=== PATIENT | male | born 1985 | race African-American/Black ===

== ENCOUNTER 2020-06-01 17:13 | Inpatient (IN) | payer OTHER, SELFPAY ==
[2020-06-01] MEDS ORDERED: Fentanyl 100 MCG/2 ML VIAL ONE (17:33)
[2020-06-01 19:26] LABS: CKMB 21.9 ng/mL (0-6.6)
[2020-06-01] MEDS ORDERED: Ondansetron PF 4 MG/2 ML Vial IVP PRN (19:35)
[2020-06-01] MEDS ORDERED: Nitroglycerin 0.4 MG TAB (25 Tab Bottle) SL PRN (19:35)
[2020-06-01] MEDS ORDERED: Acetaminophen 325 MG TAB PO PRN (19:35)
[2020-06-01] MEDS ORDERED: Ondansetron ODT 4 MG TAB PO PRN (19:35)
[2020-06-01 19:51] VITALS: BMI 27.7
[2020-06-01] MEDS ORDERED: Aspirin 325 MG TAB PO SCH (20:00)
[2020-06-01 20:09] LABS: Amphetamine Not Detected (NotDetected); Barbiturates Screen Not Detected (NotDetected); Benzodiazepine Screen Not Detected (NotDetected); Cocaine Metabolite Screen Not Detected (NotDetected); Medtox Control Line Valid? VALID (VALID); Medtox Reader # READER 4; Methadone Not Detected (NotDetected); Methamphetamine Not Detected (NotDetected); Opiate Screen Not Detected (NotDetected); Oxycodone Screen Not Detected (NotDetected); Phencyclidine (PCP) Not Detected (NotDetected); THC/Cannabinoid Screen Detected (NotDetected); Tricyclic Screen Not Detected (NotDetected)
--- NOTE | 2020-06-01 20:12 | PDOC.FPRHP ---
- History of Present Illness Chief Complaint: Chest pain History of Present Illness: Patient is a 34 year old male with a history of tobacco use and marijuana use who was transferred to the ED from [facility] with NSTEMI. Patient reports onset of sternal chest pain radiating to right neck at 9am when warming up for a workout. He says the pain came on suddenly and was associated with dizziness and nausea. He describes the pain as "my heart slowing down" and "what its like on PCP" but denies PCP or cocaine use in the past. Rates the pain initially a 9/10, now 0/10. He reports pain relief after nitro and fentanyl but notes he now has a mild headache. Denies vision changes, SOB, lightheadedness, near syncope and abdominal pain at this time. Hx of drug use - marijuana with last use this am. ED Course: In [facility] ED, EKG showed NSTEMI. Trop 0.018 -> 0.916. Zofran 4mg, nitro 0. 4 SL, nitro transderm, ASA 324 and lovenox 1mg/kg administered. Patient transferred to [facility] ED. Fentanyl 50 mcg administered for pain. Dr. Lobo was consulted in [facility] ED and examined EKG in ED. Per ED report, Dr. Lobo recommended NPO at midnight. - Allergies/Adverse Reactions Allergies Allergy/AdvReac Type Severity Reaction Status Date / Time acetaminophen Allergy Unverified 06/01/20 19:45 [From Darvocet-N] meperidine [From Demerol] Allergy Unverified 06/01/20 19:45 propoxyphene Allergy Unverified 06/01/20 19:45 [From Darvocet-N] - Home Medications Medication Instructions Recorded Confirmed Type No Known 06/01/20 06/01/20 History - History PMHx: Drug abuse (marijuana) PSHx: None FHx: Maternal grandfather - [place], no hx of sudden deaths or [place] at age < 50, family hx of DM Social: Smokes 1 ppd for past 18 years, denies ETOH use, hx drug use (marijuana), hx of fdc in 2011 - Review of Systems General: denies: fever/chills, night sweats, fatigue Eyes: denies: eye pain, vision changes ENT: denies: nasal congestion, rhinorrhea Respiratory: denies: cough, congestion, shortness of breath Cardiovascular: denies: chest pain, palpitation, edema Gastrointestinal: denies: nausea, vomiting, abdominal pain Genitourinary: denies: dysuria, polyuria Skin: denies: rashes, jaundice Musculoskeletal: denies: pain, tenderness Neurological: denies: syncope, seizure, weakness Psychological: denies: anxiety, depression - Vital signs BP: [134/78] HR: [57] RR: [17] Tmax: [98.3F] Pox: [97]% on [RA] Wt: [75kg] - Physical Exam Constitutional: NAD, awake, alert and oriented HEENT: normocephalic and atraumatic, conjunctiva clear, no scleral icterus, MMM Neck: FROM, trachea midline Chest: no-tender to palpation Heart: RRR, normal S1/S2, no murmurs/rubs/gallops, pulses present, no edema Lungs: CTAB, no respiratory distress, good air movement Abdomen: soft, non-tender, bowel sounds present Musculoskeletal: normal structure, ROM grossly normal Neurological: no focal deficit Skin: no rash/lesions, no jaundice Heme/Lymphatic: no unusual bruising or bleeding Psychiatric: normal mood and affect FMR H&P: Results - Labs Result Diagrams: 06/02/20 04:26 06/02/20 04:26 Lab results: CK-MB (CK-2) 21.9 ng/mL (0-6.6) H* 06/01/20 18:25 - EKG Interpretation EKG: Sinus bradycardia (HR 57), t wave inversions lead 1, 2, AVL stable compared to prior EKGs FMR H&P: A/P - Plan NSTEMI EKG shows bradycardia with t wave inversions lead 1, 2, AVL; stable on repeat EKG. CXR showed nothing acute. Received zofran 4mg, nitro SL, nitro TD, aspirin 324, fentanyl 50 mcg, and therapeutic lovenox 1mg/kg in ED. Heart score: 2. Dr. Lobo, cardiology, consulted and evaluated in ED. -Admit to tele for continuous monitoring -NPO at midnight -Trop 0.018 -> 0.916 -> 2.1. Continue to trend -EKG PRN if chest pain re-occcurs -UDS given hx of drug use -Continue therapeutic lovenox BID -F/u cardiology recs Tobacco abuse -Currently smokes 1ppd -Smoking cessation encouraged -Nicotine patch Marijuana use -Last use this am -Encouraged abstinence -UDS PCP: Alejandra Brennan Call Code: FULL DVT ppx: Therapeutic lovenox Dispo: Admit to tele inpatient, expected LOS > 48 hours FMR H&P: Upper Level - Plan Date/Time: 06/01/202011 I, Rosa Hylton, have evaluated this patient and agree with findings/plan as outlined by risk management internship resident. Pertinent changes/additions are listed here. 34 yo F with no significant PMH presents for chest pain. He reports during warm up he began to have left sided chest pain radiated up to neck. Associated with diaphoresis. Denies SOB, fever. Presented to ED because pain persisted. Was 10/10, currently 4/10. He is unsure what exactly improved pain. Reports a mild headache now, likely from nitro. No hx medical problems, no daily medications, no significant family hx CAD. He had this pain once during workup a couple months ago but it resolved spontaneously. Pain is not reproducible. Received fentanyl, zofran, nitro SL, nitro paste, ASA, lovenox in EDs PE: VSS Gen: NAD HEENT: Moist MM, no LAD Heart: RRR, no murmurs or extra sounds Lungs: CTAB, no wheezing. No increased work of breathing Abd: soft, nontender, BS+ Ext: no edema NSTEMI - EKG with T wave inversions lead 1, 2, AVL though repeat EKG was stable and did not have these inversions - Heart score 2 - Trop here 2.7->3.6->recheck ordered - A1c, lipids, UDS ordered - Continue therapeutic lovenox - Cardiology, Dr. Lobo, consulted from ED. Will reassess in am. - NPO @ [place] Attending: Clarence PCP: none Dispo: admit to telemetry inpatient, appreciate cardiology recs in am Addendum - Attending - Attending Attestation Date/Time: 06/01/202118 I personally evaluated the patient and discussed the management with resident henrik keating I agree with the History, Examination, Assessment and Plan documented above with any addition or exceptions noted below. Will admit to tele. Cards consulted from ER. Has seen patient. EKG identified as NSTEMI however, mild ST elevation in V5 and V6. Trop increasing but patient without symptoms. Will continue to trend and repeat EKG based on level and symptoms. Continue anticoag, antiplatelet, beta colleen, statin. Cards to cath in AM. Monitor closely. Cedric
[2020-06-01 21:00] LABS: Bacteria/HPF None Seen HPF (None Seen); Bilirubin Negative (Negative); Blood, Urine Negative (Negative); Clarity Clear (Clear); Glucose, Urine (Dipstick) Normal (Negative); Ketone, Urine 60 mg/dL (Negative); Leukocyte Negative Leu/uL (Negative); Nitrite Negative (Negative); Protein, Urine (Dipstick) 30 mg/dL (Neg-Trace); RBC/HPF 0-3 HPF (0-3); Specific Gravity, Urine 1.034 (1.002-1.036); Squamous Epithelial None Seen HPF (0-3); Urobilinogen Normal mg/dL (Less than 2); WBC/HPF 0-3 HPF (0-3); pH, Urine 5.5 (5.0-9.0)
[2020-06-01] MEDS: Lactated Ringer's 1,000 ML IV SCH (21:40)
[2020-06-01] MEDS: Nicotine 14 MG PATCH TD SCH (21:40)
--- NOTE | 2020-06-01 22:55 | PDOC.FM ---
- Subjective Subjective: Patient says he feels "fine." He notes mild chest pain, unchanged from the ED or during admission. He denies headache, vision changes, SOB, palpitations, nausea, diaphoresis and abdominal pain. - Objective Vital Signs & Weight: Vital Signs (12 hours) Temp Pulse Resp BP Pulse Ox 06/01/20 20:00 98 06/01/20 19:33 97.2 F L 54 L 18 138/66 98 Weight Weight 75.614 kg Result Diagrams: 06/03/20 04:20 06/03/20 04:20 Dx/Plan - Plan Plan: Troponin trended 0.018 -> 0.916 -> 2.1 -> 3.6 -> 5.527. Patient denies worsening of symptoms, only notes mild chest pain that is unchanged. Repeat EKG was stable. Will recheck troponin in 3 hours. F/u cardiology recs in am. Addendum - Attending - Attending Attestation Date/Time: 06/01/20 7125 I personally evaluated the patient and discussed the management with resident team I agree with the History, Examination, Assessment and Plan documented above with any addition or exceptions noted below. EKG stable. No ST changes. Trop continues to trend up. Asymptomatic. Continue current course. Cath with cards in AM. Cedric
[2020-06-02 00:04] LABS: Troponin I 5.527 ng/mL (< 0.028)
[2020-06-02] MEDS ORDERED: Enoxaparin Sodium 80 MG/0.8 ML SYRINGE SC SCH (03:00)
[2020-06-02] MEDS: Lactated Ringer's 1,000 ML IV SCH ×2 (04:20→13:05)
[2020-06-02 04:39] LABS: #Basophils 0.1 thou/uL (0.0-0.2); #Eosinphils 0.2 thou/uL (0.0-0.7); #Monocytes 0.6 thou/uL (0.11-0.59); #Neutrophils 4.4 thou/uL (1.40-6.50); %Eosinophils 2.6 % (0.0-10.0); %Lymphocytes 35.9 % (21.0-51.0); %Monocytes 7.3 % (0.0-10.0); %Neutrophils 53.3 % (42.0-75.0); Hemoglobin 14.2 g/dL (14.0-18.0); Mean Corpuscular HGB CONC 34.9 g/dL (32.0-36.0); Mean Corpuscular Hemoglobin 34.3 pg (27.0-31.0); Mean Corpuscular Volume 98.2 fL (78.0-98.0); Platelet Count 264 thou/uL (130-400); RBC Distribution Width 11.6 % (11.5-14.5); Red Blood Cell (RBC) Count 4.14 mill/uL (4.70-6.10); White Blood Cell (WBC) Count 8.3 thou/uL (4.8-10.8)
[2020-06-02 04:47] LABS: Hemoglobin A1c 5.4 % (4.0-6.0)
[2020-06-02 05:10] LABS: Anion Gap 13 mmol/L (10-20); BUN (Urea Nitrogen) 14 mg/dL (8.9-20.6); Calc. Creatinine Clearance 99 mL/min (70-130); Calcium 8.9 mg/dL (7.8-10.44); Carbon Dioxide 22 mmol/L (22-29); Chloride 105 mmol/L (98-107); Cholesterol 123 mg/dl (< 200 Desired); Estimated GFR-MDRD Greater than 90; Glucose 102 mg/dL (70-105); HDL Cholesterol 31 mg/dL (>60 Neg Risk); LDL Cholesterol, Calculated 66 mg/dL; Potassium 3.7 mmol/L (3.5-5.1); Sodium 136 mmol/L (136-145); Triglycerides 129 mg/dL (Less than 150)
--- NOTE | 2020-06-02 06:40 | PDOC.FM ---
- Subjective Subjective: Mr. Bravo is doing well this morning and has no complaints. He denies ELENA, SOB, dyspnea, CP, nausea, vomiting, dizziness. He currently has a nitro patch on. Tele is showing NSR in the 60-70s. - Objective Vital Signs & Weight: Vital Signs (12 hours) Temp Pulse Resp BP Pulse Ox 06/02/20 03:00 98.6 F 63 18 116/69 98 06/01/20 20:00 98 06/01/20 19:33 97.2 F L 54 L 18 138/66 98 Weight Weight 75.705 kg I&O: 05/31/20 06/01/20 06/02/20 06:59 06:59 06:59 Intake Total 240 Output Total 400 Balance -160 Result Diagrams: 06/02/20 04:26 06/02/20 04:26 Phys Exam - Physical Examination Constitutional: NAD (alert, awake, laying comfortably in bed) Neck: supple, full ROM Respiratory: clear to auscultation bilateral Cardiovascular: RRR, no significant murmur Musculoskeletal: no edema, pulses present (bounding b/l radial and dp) Neurological: non-focal, moves all 4 limbs Psychiatric: normal affect, A&O x 3 Skin: no rash Dx/Plan - Plan Plan: NSTEMI - Heart score: 2 - Dr. Lobo, cardiology, consulted and evaluated in ED. Appreciate recs - Admit to tele for continuous monitoring - NPO at midnight - Repeat EKG unchanged from initial Repeat if CP recurs/worsens - Trop 0.018 -> 0.916 -> 2.7 -> 3.6 -> 5.53 Continue to trend - CK-MB 21.9 - UDS pos for cannabinoids - UA neg - Continue therapeutic lovenox BID, ASA daily, nitro prn - Lipid panel nml, A1c 5.4 Tobacco abuse - Currently smokes 1ppd - Smoking cessation encouraged - Nicotine patch Marijuana use - Last use this am - Encouraged abstinence - UDS pos for cannabinoids Code: FULL DVT ppx: Therapeutic lovenox Diet: NPO pending cards recs, then heart healthy IVF: LR 115mL/h PCP: None Dispo: Admit to tele inpatient, expected LOS > 48 hours pending cardiology recs Addendum - Attending - Attending Attestation Date/Time: 06/02/20 1131 I personally evaluated the patient and discussed the management with Dr. Lamonte Louis. I agree with the History, Examination, Assessment and Plan documented above with any addition or exceptions noted below.
[2020-06-02] MEDS ORDERED: Iopamidol 370 76% 100 ML VIAL ONE (08:58)
[2020-06-02] MEDS ORDERED: Aspirin 325 mg Enteric Coated Tablet PO SCH (09:00)
[2020-06-02] MEDS ORDERED: Enoxaparin Sodium 40 MG/0.4 ML SYRINGE SC SCH (09:00)
[2020-06-02] MEDS ORDERED: Communication Order-Pharmacy FS SCH (10:30)
[2020-06-02] MEDS ORDERED: Diazepam 5 MG TAB PO SCH (10:30)
[2020-06-02 10:36] LABS: SARS-CoV-2 MS2 Positive; SARS-CoV-2 N Gene Negative; SARS-CoV-2 S Gene Negative; SARS-CoV-2 by NAA Not Detected (NotDetected); SARS-CoV-2 orf1ab Negative
--- NOTE | 2020-06-02 10:45 | CON ---
DATE OF CONSULTATION: 06/02/2020 REASON FOR CONSULTATION: Arz-JV-llbrcluxa myocardial infarction. HISTORY OF PRESENT ILLNESS: Mr. Bravo is a 34-year-old man. The patient was at home, he was getting ready to exercise, he was standing up, he was moving his arms around, he started having pain across his chest. He does not recall getting any worse when he took a breath. He went to the emergency room, where he was found to have increased troponin levels. His pain has been relieved. He has received Lovenox. The patient states he smokes less than one pack cigarettes per day, he smokes marijuana. He used PCP in the remote past, several years ago. No history of cocaine or methamphetamine. Drug screen was negative other than marijuana. He had no fever. No cough. Otherwise, he had been feeling well to this moment. MEDICATIONS: As an outpatient, none. ALLERGIES: TO ACETAMINOPHEN AND DEMEROL AND PROPOXYPHENE. FAMILY HISTORY: Unaware of any coronary artery disease at young age. REVIEW OF SYSTEMS: Otherwise negative. PHYSICAL EXAMINATION: GENERAL: This is a 34-year-old gentleman, resting comfortably, in no distress. VITAL SIGNS: Blood pressure 117/61. Pulse 60, it is regular. HEENT: Eyes, sclerae are nonicteric. Mouth, mucous membranes moist. NECK: Supple. No lymphadenopathy. LUNGS: Clear. No wheezing, rales, or rhonchi. CARDIAC: Normal S1, normal S2. There is no murmur, rub, or gallop. ABDOMEN: Soft, nontender. EXTREMITIES: No clubbing or cyanosis. He has no edema. PSYCHIATRIC: Mood and affect, normal. NEUROLOGIC: Grossly normal. DIAGNOSTIC STUDIES: EKG; normal sinus rhythm, some sinus bradycardia, 0.[address] elevation in V4 and V5. EKG done this morning was normal. Cardiac enzymes, the patient's troponin yesterday was 2.7, they went to 3.6 at 9 p.m. and then 5.5. LDL cholesterol 66, glucose 102, HDL cholesterol 31. ASSESSMENT: 1. Yle-UI-ihwjsnrem myocardial infarction. 2. Low risk factor profile with no elevation of LDL cholesterol, normal blood sugar, no history of hypertension, no family history of heart disease. PLAN: 1. He had received Lovenox, last dose at 3:30 this morning. 2. He is getting fluid. 3. Aspirin. 4. Proceed to cardiac catheterization later today. Risks of stroke, heart attack, iodine allergy, loss of blood supply to leg or kidney, stent thrombosis, stent restenosis discussed. The patient understands and wishes to proceed. Job ID: [id number]
[2020-06-02] MEDS ORDERED: Midazolam HCl 2 mg/2 ml Vial ONE (13:08)
[2020-06-02] MEDS ORDERED: Fentanyl 100 MCG/2 ML VIAL ONE (13:08)
[2020-06-02] MEDS ORDERED: Nitroglycerin 100MG/250ML BOT 0 ML ONE (13:19)
[2020-06-02] MEDS ORDERED: Nitroglycerin 0.4 MG TAB (25 Tab Bottle) SL PRN (13:53)
[2020-06-02] MEDS ORDERED: Sodium Chloride 0.9% 200 ML IV PRN (13:53)
[2020-06-02] MEDS: Nicotine 14 MG PATCH TD SCH (20:37)
[2020-06-03 05:20] LABS: #Basophils 0.1 thou/uL (0.0-0.2); #Eosinphils 0.2 thou/uL (0.0-0.7); #Lymphocytes 2.7 thou/uL (1.20-3.40); #Monocytes 0.5 thou/uL (0.11-0.59); #Neutrophils 3.1 thou/uL (1.40-6.50); %Basophils 1.6 % (0.0-1.0); %Eosinophils 2.7 % (0.0-10.0); %Lymphocytes 41.4 % (21.0-51.0); %Monocytes 7.5 % (0.0-10.0); %Neutrophils 46.8 % (42.0-75.0); Hemoglobin 14.2 g/dL (14.0-18.0); Mean Corpuscular HGB CONC 33.8 g/dL (32.0-36.0); Mean Corpuscular Hemoglobin 33.1 pg (27.0-31.0); Mean Corpuscular Volume 98.1 fL (78.0-98.0); Mean Platelet Volume 7.5 fL (7.4-10.4); Platelet Count 262 thou/uL (130-400); RBC Distribution Width 11.3 % (11.5-14.5); White Blood Cell (WBC) Count 6.6 thou/uL (4.8-10.8)
--- NOTE | 2020-06-03 05:49 | PDOC.FM ---
- Subjective Subjective: Mr. Bravo is doing well this morning, denies CP, and has no complaints at this time. He had a heart cath yesterday and is awaiting the results. - Objective Vital Signs & Weight: Vital Signs (12 hours) Temp Pulse Resp BP Pulse Ox 06/03/20 03:05 98.5 F 66 16 147/86 H 98 06/03/20 01:56 98 06/03/20 00:00 65 20 06/02/20 20:00 98 06/02/20 19:39 98.6 F 54 L 18 135/85 99 Weight Weight 76.702 kg I&O: 06/01/20 06/02/20 06/03/20 06:59 06:59 06:59 Intake Total 240 890 Output Total 400 600 Balance -160 290 Result Diagrams: 06/03/20 04:20 06/03/20 04:20 Phys Exam - Physical Examination Constitutional: NAD (awake, alert) Neck: supple, full ROM Respiratory: no rales, clear to auscultation bilateral Cardiovascular: RRR, no significant murmur Musculoskeletal: no edema, pulses present (bounding radial b/l) Neurological: non-focal, moves all 4 limbs Psychiatric: normal affect, A&O x 3 Dx/Plan - Plan Plan: This is a 34M presenting for CP with radiation to neck that was identified to have a NSTEMI. NSTEMI - On tele for continuous monitoring - Repeat EKG if CP recurs/worsens - Trop 0.018 -> 0.916 -> 2.7 -> 3.6 -> 5.53 Continue to trend - Risk stratifying labs nml - Cardiology consulted, appreciate recs Heart cath yesterday showed small area of hypokinesis of distal inf wall and LVEF 60%. Send home on Atorvastatin, Lisinopril, ASA, and prn SL nitroglycerin Tobacco abuse - Currently smokes 1ppd - Smoking cessation encouraged - Nicotine patch Marijuana use - Last use this am - Encouraged abstinence - UDS pos for cannabinoids Code: FULL DVT ppx: Therapeutic lovenox Diet: NPO pending heart cath, then heart healthy IVF: LR 115mL/h PCP: None Dispo: Admit to tele inpatient, discharge today Addendum - Attending - Attending Attestation Date/Time: 06/03/20 7785 I personally evaluated the patient and discussed the management with Dr. Lamonte Louis. I agree with the History, Examination, Assessment and Plan documented above with any addition or exceptions noted below.
[2020-06-03 05:51] LABS: Anion Gap 13 mmol/L (10-20); BUN (Urea Nitrogen) 13 mg/dL (8.9-20.6); Calc. Creatinine Clearance 99 mL/min (70-130); Carbon Dioxide 22 mmol/L (22-29); Chloride 108 mmol/L (98-107); Estimated GFR-MDRD 90; Glucose 85 mg/dL (70-105); Sodium 139 mmol/L (136-145)
[2020-06-03 06:40] LABS: Critical Call Chem Troponin I RESULT DECREASING; Troponin I 1.944 ng/mL (< 0.028)
[2020-06-03] MEDS ORDERED: Aspirin 81 mg Enteric Coated Tablet PO SCH (09:00)
--- NOTE | 2020-06-03 09:35 | PRG ---
DATE OF SERVICE: 06/03/2020 SUBJECTIVE: Mr. Bravo is doing well, ready to be discharged. OBJECTIVE: VITAL SIGNS: Blood pressure is 135/79, pulse 60 and it is regular. LUNGS: Clear. CARDIAC: Normal S1, normal S2. EXTREMITIES: Right groin nontender. Cardiac catheterization yesterday revealed the following; 1. No evidence of any atherosclerotic heart disease. 2. Low antegrade flow down the left anterior descending artery. 3. Small area of akinesis of the distal inferior wall, looks like the very distal distribution of the LAD. This may represent small vessel dysfunction (syndrome X), which is a poorly understood problem with microvascular disease. RECOMMENDATIONS: 1. Aspirin 81 mg a day. 2. Atorvastatin 20 mg a day. 3. Nitroglycerin if needed. 4. Smoking cessation. 5. In view of the myocardial infarction per guidelines, lisinopril 2.5 mg a day. 6. We will avoid beta blockers due to the bradycardia. The patient can follow up with us in a month. Job ID: [id number]
[2020-06-03 12:22] VITALS: BP 136/84; TEMP 97.9
[2020-06-03] MEDS ORDERED: Atorvastatin Calcium 20 MG TAB PO SCH (21:00)
--- NOTE | 2020-06-04 01:31 | DIS ---
DATE OF ADMISSION: 06/01/2020 DATE OF DISCHARGE: 06/03/2020 RESIDENT: Aletha Polk MD. ADMITTING ATTENDING: Loretta Lima MD. DISCHARGE ATTENDING: Abimael Mchugh MD. CONSULTS: Cardiology (Alaina Lobo), 06/03. PROCEDURE: Heart catheterization (06/02). PRIMARY DIAGNOSIS: Ayb-HZ-elnjnlrwy myocardial infarction. SECONDARY DIAGNOSES: 1. Acute tobacco use. 2. Marijuana use. DISCHARGE MEDICATIONS: 1. Aspirin 81 mg p.o. daily. 2. Atorvastatin 20 mg p.o. at bedtime. 3. Lisinopril 2.5 mg p.o. daily. 4. Nitroglycerin 0.4 mg sublingual q.5 minutes p.r.n. 5. Plavix 75 mg p.o. daily. Discontinue medication: . HISTORY OF PRESENT ILLNESS/HOSPITAL COURSE: This is a 34-year-old male, who was transferred from [facility] ED with an NSTEMI. The patient reported onset of sternal chest pain that radiated to his neck at 9:00 a.m. when warming up for workout. The pain came on suddenly and was associated with dizziness and nausea. He initially rated the pain at 9/10, but it had resolved by arrival to our ED after administration of nitroglycerin and fentanyl. In [facility], he was also administered Zofran, aspirin, Lovenox. EKG in [facility] showed NSTEMI and indeterminate troponin of 0.018, that increased to 0.916. Dr. Lobo was consulted from there, who examined the EKG and recommended transfer to us and making him n.p.o. at midnight. A repeat EKG was obtained, which is unchanged from the initial, although his troponins continued to increase to 5.53. His CK-MB was 21.9. His UDS was positive for cannabinoids. His UA was negative, lipid panel was normal, A1c was 5.[address] Foley examined him the next morning and recommended cardiac catheterization. Findings included LVEF of 60% with a small area of akinesis in the distal inferior wall. Other findings include normal coronary arteries, slow antegrade flow of the LAD, and the LAD "wrapping around" the apex. Dr. Foley recommended medical management with aspirin, Plavix, smoking cessation, nitroglycerin as needed, lisinopril 2.5 mg. He specifically mentioned avoiding beta blockers due to the patient's baseline bradycardia. This was all discussed with the patient who voiced understanding. He was given a card, so that he could establish care with our clinic for followup. DISPOSITION: Stable. DISCHARGE INSTRUCTIONS: Location: Home. Diet: Regular. Activity: As tolerated. Followup: The patient is recommended to establish a PCP and follow up with him/her in 7 to 10 days. The patient is recommended to follow up with Cardiology in the outpatient setting in 1 month. Job ID: [id number]
== END 2020-06-03 13:31 | disposition home or self-care (01) | DRG 282 ==
LOC: ERS 17:13 → OBSVTOIN 18:23 → 2NO 18:23
PROVIDERS: ADMIT Student in an Organized Health Care Education/Training Program; ATTEND Student in an Organized Health Care Education/Training Program
PROC: B2111ZZ Fluoroscopy of Multiple Coronary Arteries using Low Osmolar Contrast (ICD-10-PCS; principal; 2020-06-02)
PROC: B2151ZZ Fluoroscopy of Left Heart using Low Osmolar Contrast (ICD-10-PCS; 2020-06-02)
PROC: 4A023N7 Measurement of Cardiac Sampling and Pressure, Left Heart, Percutaneous Approach (ICD-10-PCS; 2020-06-02)
DX: I21.4 Non-ST elevation (NSTEMI) myocardial infarction (principal); F17.210 Nicotine dependence, cigarettes, uncomplicated; F12.90 Cannabis use, unspecified, uncomplicated; Z90.49 Acquired absence of other specified parts of digestive tract; Z88.8 Allergy status to other drugs, medicaments and biological substances; Z20.828 Contact with and (suspected) exposure to other viral communicable diseases
CPT/HCPCS: 36415; 76942; 80048; 80061; 80306; 81001; 82550; 82553; 83036; 84484; 85025; 87635; 93005; 93010; 93458; 94760; 96374; 97139; 99152; J1644; J1650; J2250; J3010; Q9967; U0003